=== PATIENT | female | born 1970 | race Caucasian/White ===

== ENCOUNTER 2018-08-21 19:04 | Emergency (ER) | payer MEDICARE, MEDICAID ==
[~2018-08-21] VITALS: Ht 175.3 cm; Wt 116.0 kg
[~2018-08-21 19:04] MED LIST: ADV50500 IH; ALBU18HF2 INH; ALPR-624 PO; BISA10SU60 RC; CARCD120C PO; MORP30TA60 PO; NITR100C11 PO; NORCO10T PO; ONDA4TAB12 PO; ONDA4TAB59 PO; ONDA8TAB9 PO; PANT-47 PO; PANT20TA2 PO; PHE12.5T PO; QUET200T PO
[2018-08-21 19:07] VITALS: BP 117/76
[2018-08-21] MEDS ORDERED: ipratropium/albuterol 3ml nebule NEB ONE (20:10)
[2018-08-21] MEDS ORDERED: albuterol 2.5 MG/3 ML nebule NEB ONE (20:10)
[2018-08-21] MEDS ORDERED: ipratropium 0.5 MG/2.5ML nebule IH ONE (20:10)
== END 2018-08-21 20:49 | disposition left against medical advice (07) ==
LOC: ER 19:04
DX: J45.909 Unspecified asthma, uncomplicated (principal); Z53.21 Procedure and treatment not carried out due to patient leaving prior to being seen by health care provider
CPT/HCPCS: 94640; 94760

== ENCOUNTER 2018-09-22 12:46 | Emergency (ER) | payer MEDICARE, MEDICAID ==
[~2018-09-22] VITALS: Ht 175.3 cm; Wt 100.0 kg
[2018-09-22] MEDS ORDERED: predniSONE 20 mg tablet PO ONE (14:45)
[2018-09-22] MEDS ORDERED: PRED20TA PO (14:48)
[2018-09-22 14:57] VITALS: BP 130/95
== END 2018-09-22 14:58 | disposition home or self-care (01) ==
LOC: ER 12:46
DX: L25.9 Unspecified contact dermatitis, unspecified cause (principal); J45.909 Unspecified asthma, uncomplicated; G89.29 Other chronic pain; Z90.49 Acquired absence of other specified parts of digestive tract; Z98.890 Other specified postprocedural states; Z88.0 Allergy status to penicillin; Z79.899 Other long term (current) drug therapy; Z56.0 Unemployment, unspecified
CPT/HCPCS: 99283; J7512

== ENCOUNTER 2019-06-15 10:15 | Emergency (ER) | payer MEDICARE, MEDICAID ==
[~2019-06-15] VITALS: Ht 175.3 cm; Wt 103.7 kg
[~2019-06-15 10:15] MED LIST changes: -PHE12.5T PO; +PROM12.512 PO
[2019-06-15 10:48] VITALS: BP 124/72
== END 2019-06-15 10:49 | disposition home or self-care (01) ==
LOC: ER 10:16
DX: M76.62 Achilles tendinitis, left leg (principal); M76.61 Achilles tendinitis, right leg; J45.909 Unspecified asthma, uncomplicated; G47.30 Sleep apnea, unspecified; G89.29 Other chronic pain; F41.9 Anxiety disorder, unspecified; F32.9 Major depressive disorder, single episode, unspecified; F20.9 Schizophrenia, unspecified; Z90.49 Acquired absence of other specified parts of digestive tract; Z98.890 Other specified postprocedural states; Z56.0 Unemployment, unspecified; Z88.0 Allergy status to penicillin; Z79.899 Other long term (current) drug therapy
CPT/HCPCS: 99281

== ENCOUNTER 2019-07-26 13:59 | Emergency (ER) | payer MEDICARE, MEDICAID ==
[~2019-07-26] VITALS: Ht 175.3 cm; Wt 105.5 kg
[2019-07-26 14:04] VITALS: BP 125/83
[2019-07-26] MEDS ORDERED: HYDROcodone/acetaminophen 5mg/325mg tablet PO ONE (14:25)
== END 2019-07-26 15:26 | disposition home or self-care (01) ==
LOC: ER 14:00
DX: S82.62XA Displaced fracture of lateral malleolus of left fibula, initial encounter for closed fracture (principal); J45.909 Unspecified asthma, uncomplicated; G47.30 Sleep apnea, unspecified; G89.29 Other chronic pain; F41.9 Anxiety disorder, unspecified; F32.9 Major depressive disorder, single episode, unspecified; F20.9 Schizophrenia, unspecified; Z90.49 Acquired absence of other specified parts of digestive tract; Z98.890 Other specified postprocedural states; Z88.0 Allergy status to penicillin; Z79.899 Other long term (current) drug therapy; Z56.0 Unemployment, unspecified; W18.39XA Other fall on same level, initial encounter; Y93.89 Activity, other specified; Y92.89 Other specified places as the place of occurrence of the external cause; Y99.8 Other external cause status
CPT/HCPCS: 73610; 99284

== ENCOUNTER 2019-09-14 19:21 | Emergency (ER) | payer MEDICARE, MEDICAID ==
[~2019-09-14] VITALS: Ht 175.3 cm; Wt 102.0 kg
[2019-09-14 19:59] LABS: CLARITY,URINE CLOUDY (Clear); COLOR,URINE YELLOW (Yellow); GLUCOSE, URINE NEGATIVE (Neg); KETONES,URINE 15 mg/dl (Neg); LEUKOCYTE ESTERASE ,URINE NEGATIVE (Neg); NITRITES, URINE NEGATIVE (Neg); OCCULT BLOOD,URINE TRACE-INTACT (Neg); PROTEIN,URINE TRACE mg/dl (Neg); URINE HCG NEGATIVE (NEG)
[2019-09-14 20:00] LABS: UA COLLECTION TYPE CLN CATCH MIDSTREAM
[2019-09-14 20:06] LABS: MUCUS STRANDS MODERATE /LPF (Neg); SQUAMOUS EPITHELIAL CELL,UR MANY /LPF (FEW)
[2019-09-14 20:07] LABS: BACTERIA,URINE FEW /HPF (Neg); RBC,URINE 0-2 /HPF (0-2); WBC,URINE 0-4 /HPF (0-4)
[2019-09-14 20:12] LABS: ALANINE AMINOTRANSFERASE 373 U/L (12-78); ALBUMIN/GLOBULIN RATIO 1.1 (1.1-1.5); ALKALINE PHOSPHATASE 142 IU/L (46-116); ANION GAP 11 (8-16); ASPARTATE AMINO TRANSFERASE 266 U/L (10-37); BILIRUBIN,TOTAL 0.7 MG/DL (0.1-1.0); BLOOD UREA NITROGEN 21 MG/DL (7-18); BUN/CREATININE RATIO 17.8 (6.6-38.0); CALCIUM 8.7 MG/DL (8.5-10.1); CHLORIDE 106 MMOL/L (99-107); CREATININE 1.18 MG/DL (0.40-0.90); GLUCOSE 109 MG/DL (70-104); LIPASE 51 U/L (73-393); SODIUM 139 MMOL/L (135-145); TOTAL CARBON DIOXIDE 22.2 MMOL/L (24-32); TOTAL PROTEIN 7.5 G/DL (6.4-8.2); eGFR 49 ML/MIN
[2019-09-14] MEDS ORDERED: normal saline 1000ML IV soln IVB ONE (20:25)
[2019-09-14] MEDS ORDERED: morphine 4 MG/ML inj SYRINge IV PRN (20:25)
[2019-09-14] MEDS ORDERED: ketorolac tromethamine 15mg/ml inj. IV ONE (20:25)
[2019-09-14] MEDS ORDERED: ondansetron/PF 4mg/2ml inj IV ONE (20:25)
[2019-09-14 20:40] LABS: BASOPHILS % (AUTO) 0.2 % (0-1); EOSINOPHILS # (AUTO) 0.1 X10'3 (0-0.9); EOSINOPHILS % (AUTO) 1.4 % (0-6); HEMOGLOBIN 16.6 g/dl (12.0-16.0); LYMPHOCYTES # (AUTO) 0.6 X10'3 (1.1-4.8); LYMPHOCYTES % (AUTO) 6.1 % (21-51); MEAN CORPUSCULAR HGB CONC 35.2 g/dL (33.0-36.5); MEAN CORPUSCULAR VOLUME 90.7 FL (78-98); MEAN PLATELET VOLUME 8.2 FL (7.4-10.4); MONOCYTES # (AUTO) 0.5 X10'3 (0-0.9); MONOCYTES % (AUTO) 5.3 % (2-12); PLATELET COUNT 255 X10'3 (140-440); RED BLOOD COUNT 5.18 X10'6 (4.20-5.60); RED CELL DISTRIBUTION WIDTH 12.5 % (11.5-14.5); WHITE BLOOD COUNT 9.2 X10'3 (4.5-11.0)
[2019-09-14] MEDS ORDERED: ONDA4TAB6 PO (21:41)
[2019-09-14 21:50] VITALS: BP 134/78
== END 2019-09-14 21:55 | disposition home or self-care (01) ==
LOC: ER 19:22
DX: E86.0 Dehydration (principal); R11.2 Nausea with vomiting, unspecified; R19.7 Diarrhea, unspecified; R00.0 Tachycardia, unspecified; J45.909 Unspecified asthma, uncomplicated; G89.29 Other chronic pain; M79.7 Fibromyalgia; F32.9 Major depressive disorder, single episode, unspecified; F41.9 Anxiety disorder, unspecified; F20.9 Schizophrenia, unspecified; G47.30 Sleep apnea, unspecified; Z88.0 Allergy status to penicillin; Z79.899 Other long term (current) drug therapy; Z98.890 Other specified postprocedural states; Z90.49 Acquired absence of other specified parts of digestive tract; Z56.0 Unemployment, unspecified
CPT/HCPCS: 36415; 80053; 81001; 81025; 83690; 85025; 96361; 96374; 96375; 99283; J1885; J2270; J2405; J7030; 96376

== ENCOUNTER 2019-11-01 11:08 | Emergency (ER) | payer MEDICARE, MEDICAID ==
[~2019-11-01] VITALS: Ht 175.3 cm; Wt 102.0 kg
[~2019-11-01 11:08] MED LIST changes: +ONDA4TAB6 PO
[2019-11-01 11:43] LABS: CLARITY,URINE CLEAR (Clear); COLOR,URINE YELLOW (Yellow); GLUCOSE, URINE NEGATIVE (Neg); KETONES,URINE NEGATIVE (Neg); LEUKOCYTE ESTERASE ,URINE NEGATIVE (Neg); NITRITES, URINE NEGATIVE (Neg); OCCULT BLOOD,URINE TRACE-INTACT (Neg); PROTEIN,URINE NEGATIVE (Neg); UROBILINOGEN,URINE 0.2 E.U/dL (0.2-1.0)
[2019-11-01 11:44] LABS: UA COLLECTION TYPE CLN CATCH MIDSTREAM
[2019-11-01 12:01] LABS: MUCUS STRANDS FEW /LPF (Neg); SQUAMOUS EPITHELIAL CELL,UR MANY /LPF (FEW)
[2019-11-01 12:02] LABS: BACTERIA,URINE FEW /HPF (Neg); RBC,URINE 0-2 /HPF (0-2); WBC,URINE 0-4 /HPF (0-4)
[2019-11-01] MEDS ORDERED: ketorolac tromethamine 15mg/ml inj. IM ONE (12:10)
--- NOTE | 2019-11-01 12:16 | NUR ---
To CT scan via w/c.
[2019-11-01] MEDS ORDERED: HYDR-3965 PO (13:52)
[2019-11-01 14:09] VITALS: BP 126/69
== END 2019-11-01 14:10 | disposition home or self-care (01) ==
LOC: ER 11:09
DX: R10.9 Unspecified abdominal pain (principal); R51 Headache; R30.0 Dysuria; J45.909 Unspecified asthma, uncomplicated; G47.30 Sleep apnea, unspecified; G89.29 Other chronic pain; M79.7 Fibromyalgia; F41.9 Anxiety disorder, unspecified; F32.9 Major depressive disorder, single episode, unspecified; F20.9 Schizophrenia, unspecified; Z90.49 Acquired absence of other specified parts of digestive tract; Z98.890 Other specified postprocedural states; Z56.0 Unemployment, unspecified; Z88.0 Allergy status to penicillin; Z79.899 Other long term (current) drug therapy
CPT/HCPCS: 74176; 81001; 96372; 99284; J1885

== ENCOUNTER 2019-11-03 06:03 | Emergency (ER) | payer MEDICARE, MEDICAID ==
[~2019-11-03] VITALS: Ht 175.3 cm; Wt 100.0 kg
[~2019-11-03 06:03] MED LIST changes: +HYDR-3965 PO
[2019-11-03] MEDS ORDERED: ketorolac trometh. 30mg/ml inj. IV ONE (07:25)
[2019-11-03 07:34] LABS: BASOPHILS # (AUTO) 0.1 X10'3 (0-0.2); BASOPHILS % (AUTO) 0.5 % (0-1); EOSINOPHILS # (AUTO) 0.1 X10'3 (0-0.9); EOSINOPHILS % (AUTO) 0.7 % (0-6); HEMATOCRIT 38.3 % (35.0-45.0); HEMOGLOBIN 13.5 g/dl (12.0-16.0); MEAN CORPUSCULAR HEMOGLOBIN 31.8 PG (27.0-31.0); MEAN CORPUSCULAR HGB CONC 35.3 g/dL (33.0-36.5); MEAN CORPUSCULAR VOLUME 90.1 FL (78-98); MEAN PLATELET VOLUME 7.9 FL (7.4-10.4); MONOCYTES # (AUTO) 0.7 X10'3 (0-0.9); NEUTROPHILS # (AUTO) 9.5 X10'3 (1.8-7.7); NEUTROPHILS % (AUTO) 83.8 % (42-75); PLATELET COUNT 237 X10'3 (140-440); RED BLOOD COUNT 4.25 X10'6 (4.20-5.60); WHITE BLOOD COUNT 11.3 X10'3 (4.5-11.0)
[2019-11-03 07:38] LABS: URINE HCG NEGATIVE (NEG)
[2019-11-03 07:39] LABS: CLARITY,URINE CLOUDY (Clear); COLOR,URINE YELLOW (Yellow); GLUCOSE, URINE NEGATIVE (Neg); KETONES,URINE 40 mg/dl (Neg); LEUKOCYTE ESTERASE ,URINE MODERATE (Neg); NITRITES, URINE NEGATIVE (Neg); OCCULT BLOOD,URINE LARGE (Neg); PH,URINE 6.5 (4.8-8.0); PROTEIN,URINE 30 mg/dl (Neg)
[2019-11-03 07:47] LABS: UA COLLECTION TYPE CLN CATCH MIDSTREAM
[2019-11-03 07:48] LABS: MUCUS STRANDS FEW /LPF (Neg); SQUAMOUS EPITHELIAL CELL,UR MANY /LPF (FEW); WBC CLUMPS,URINE FEW /HPF (NEGATIVE); WBC,URINE TNTC /HPF (0-4)
[2019-11-03 07:49] LABS: BACTERIA,URINE 2+ /HPF (Neg)
[2019-11-03 07:50] LABS: RBC,URINE 20-50 /HPF (0-2)
[2019-11-03 08:33] LABS: ALANINE AMINOTRANSFERASE 79 U/L (12-78); ALBUMIN 3.4 G/DL (3.4-5.0); ALBUMIN/GLOBULIN RATIO 0.8 (1.1-1.5); ALKALINE PHOSPHATASE 130 IU/L (46-116); ANION GAP 9 (8-16); ASPARTATE AMINO TRANSFERASE 33 U/L (10-37); BILIRUBIN,TOTAL 0.6 MG/DL (0.1-1.0); BLOOD UREA NITROGEN 13 MG/DL (7-18); BUN/CREATININE RATIO 13.5 (6.6-38.0); CALCIUM 8.9 MG/DL (8.5-10.1); CHLORIDE 106 MMOL/L (99-107); CREATININE 0.96 MG/DL (0.40-0.90); GLUCOSE 93 MG/DL (70-104); SODIUM 138 MMOL/L (135-145); TOTAL PROTEIN 7.7 G/DL (6.4-8.2); eGFR 62 ML/MIN
[2019-11-03 08:56] VITALS: BP 123/68
== END 2019-11-03 08:58 | disposition home or self-care (01) ==
LOC: ER 06:04
DX: N83.201 Unspecified ovarian cyst, right side (principal); J45.909 Unspecified asthma, uncomplicated; G47.30 Sleep apnea, unspecified; G89.29 Other chronic pain; F41.9 Anxiety disorder, unspecified; F32.9 Major depressive disorder, single episode, unspecified; F20.9 Schizophrenia, unspecified; Z90.49 Acquired absence of other specified parts of digestive tract; Z98.890 Other specified postprocedural states; Z56.0 Unemployment, unspecified; Z88.0 Allergy status to penicillin; Z79.899 Other long term (current) drug therapy
CPT/HCPCS: 36415; 76775; 76830; 76856; 80053; 81001; 81025; 85025; 96374; 99284; J1885; 96372

== ENCOUNTER 2020-08-13 05:59 | Emergency (ER) | payer MEDICARE, MEDICAID ==
[~2020-08-13] VITALS: Ht 175.3 cm; Wt 100.0 kg
[~2020-08-13 05:59] MED LIST changes: -HYDR-3965 PO
[2020-08-13 06:09] VITALS: BP 122/54
== END 2020-08-13 07:27 | disposition home or self-care (01) ==
LOC: ER 06:00
DX: G89.29 Other chronic pain (principal); M25.562 Pain in left knee; J45.909 Unspecified asthma, uncomplicated; M54.9 Dorsalgia, unspecified; F41.9 Anxiety disorder, unspecified; F32.9 Major depressive disorder, single episode, unspecified; F20.9 Schizophrenia, unspecified; I49.9 Cardiac arrhythmia, unspecified; Z56.0 Unemployment, unspecified; Z88.0 Allergy status to penicillin; Z79.899 Other long term (current) drug therapy; Z87.448 Personal history of other diseases of urinary system
CPT/HCPCS: 73564; 99283

== ENCOUNTER 2021-02-17 03:01 | Emergency (ER) | payer MEDICARE, MEDICAID ==
[~2021-02-17] VITALS: Ht 175.3 cm; Wt 102.7 kg
[2021-02-17 03:12] VITALS: BP 143/82
[2021-02-17] MEDS ORDERED: morphine 2 MG/ML inj. syringe IV PRN (03:55)
[2021-02-17] MEDS ORDERED: ondansetron/PF 4mg/2ml inj IV ONE (03:55)
[2021-02-17 04:07] LABS: BASOPHILS % (AUTO) 0.1 % (0-1); EOSINOPHILS # (AUTO) 0.1 X10'3 (0-0.9); EOSINOPHILS % (AUTO) 1.2 % (0-6); HEMATOCRIT 36.1 % (35.0-45.0); HEMOGLOBIN 12.3 g/dl (12.0-16.0); LYMPHOCYTES # (AUTO) 0.7 X10'3 (1.1-4.8); MEAN CORPUSCULAR HEMOGLOBIN 30.4 PG (27.0-31.0); MEAN CORPUSCULAR HGB CONC 34.2 g/dL (33.0-36.5); MEAN CORPUSCULAR VOLUME 88.8 FL (78-98); MEAN PLATELET VOLUME 7.7 FL (7.4-10.4); MONOCYTES # (AUTO) 0.7 X10'3 (0-0.9); MONOCYTES % (AUTO) 6.3 % (2-12); NEUTROPHILS # (AUTO) 10.2 X10'3 (1.8-7.7); NEUTROPHILS % (AUTO) 86.4 % (42-75); PLATELET COUNT 214 X10'3 (140-440); RED BLOOD COUNT 4.06 X10'6 (4.20-5.60); RED CELL DISTRIBUTION WIDTH 13.6 % (11.5-14.5); WHITE BLOOD COUNT 11.8 X10'3 (4.5-11.0)
[2021-02-17] MEDS ORDERED: ketorolac tromethamine 15mg/ml inj. IV ONE (04:15)
[2021-02-17] MEDS ORDERED: metoclopramide 5 mg/ml inj IV ONE (04:15)
[2021-02-17] MEDS ORDERED: LORazepam 2 mg/ml vial IV ONE (04:15)
[2021-02-17 04:19] LABS: ALANINE AMINOTRANSFERASE 46 U/L (12-78); ALBUMIN 2.9 G/DL (3.4-5.0); ALBUMIN/GLOBULIN RATIO 0.7 (1.1-1.5); ANION GAP 10 (8-16); ASPARTATE AMINO TRANSFERASE 24 U/L (10-37); BILIRUBIN,TOTAL 0.7 MG/DL (0.1-1.0); BLOOD UREA NITROGEN 14 MG/DL (7-18); BUN/CREATININE RATIO 14.9 (6.6-38.0); CALCIUM 8.2 MG/DL (8.5-10.1); CHLORIDE 106 MMOL/L (99-107); CREATININE 0.94 MG/DL (0.40-0.90); GLUCOSE 114 MG/DL (70-104); LIPASE < 50 U/L (73-393); POTASSIUM 3.9 MMOL/L (3.5-5.1); SODIUM 140 MMOL/L (135-145); TOTAL CARBON DIOXIDE 24.2 MMOL/L (24-32); TOTAL PROTEIN 6.8 G/DL (6.4-8.2); eGFR 63 ML/MIN
[2021-02-17] MEDS ORDERED: normal saline 1000ml 1,000 ML IV ONE (04:30)
[2021-02-17 04:32] LABS: ALKALINE PHOSPHATASE 114 IU/L (46-116)
[2021-02-17 04:45] LABS: URINE HCG NEGATIVE (NEG)
[2021-02-17 04:56] LABS: CLARITY,URINE CLOUDY (Clear); COLOR,URINE RED (Yellow)
[2021-02-17 05:10] LABS: UA COLLECTION TYPE CLN CATCH MIDSTREAM
[2021-02-17 05:12] LABS: BACTERIA,URINE 1+ /HPF (Neg); MUCUS STRANDS NONE SEEN /LPF (Neg); RBC,URINE TNTC /HPF (0-2); SQUAMOUS EPITHELIAL CELL,UR MODERATE /LPF (FEW)
[2021-02-17] MEDS ORDERED: morphine 4 MG/ML inj SYRINge IV ONE (06:00)
--- NOTE | 2021-02-17 07:15 | NUR ---
TC FROM DAUGHTER FOR CONDITION REPORT. DAUGHTER, CLAUDETTE MARTÍNEZ, IS POA AND CONTACT NUMBER IS [phone]. FYI:PATIENT DOES NOT LIKE TO DRINK WATER AND WILL DRINK COFFEE, V-8 JUICE, OR RED GATORADE WITH MEDICATION. IN ADDITION, CLAUDETTE STATES THAT HE NEEDS TO BE TOLD TO EAT OR FED, OTHERWISE HE WILL NOT EAT.
[2021-02-17] MEDS ORDERED: DOXY100C76 PO (07:23)
[2021-02-17] MEDS ORDERED: CefTRIAXone 250MG inj IV ONE (07:45)
[2021-02-17] MEDS ORDERED: HYDR-3965 PO (08:00)
[2021-02-17] MEDS ORDERED: CefTRIAXone 1000mg IM Kit (w/lidocaine diluent) IM ONE (08:35)
== END 2021-02-17 08:49 | disposition home or self-care (01) ==
LOC: ER 03:01
DX: N73.9 Female pelvic inflammatory disease, unspecified (principal); K59.00 Constipation, unspecified; R10.13 Epigastric pain; J45.909 Unspecified asthma, uncomplicated; G89.29 Other chronic pain; F41.9 Anxiety disorder, unspecified; F32.9 Major depressive disorder, single episode, unspecified; F20.9 Schizophrenia, unspecified; Z87.440 Personal history of urinary (tract) infections; Z90.49 Acquired absence of other specified parts of digestive tract; Z98.890 Other specified postprocedural states; Z56.0 Unemployment, unspecified; Z88.0 Allergy status to penicillin; Z79.899 Other long term (current) drug therapy
CPT/HCPCS: 36415; 74176; 76856; 80053; 81001; 81025; 83690; 84145; 85025; 87077; 87088; 87186; 87491; 87591; 93976; 96361; 96372; 96374; 96375; 96376; 99285; J0696; J1885; J2060; J2270; J2405; J2765; J7030

== ENCOUNTER 2021-07-29 08:04 | Emergency (ER) | payer MEDICARE, MEDICAID ==
[~2021-07-29] VITALS: Ht 175.3 cm; Wt 104.0 kg
[2021-07-29 08:13] VITALS: BP 148/91
== END 2021-07-29 10:05 | disposition left against medical advice (07) ==
LOC: ER 08:04
DX: M79.641 Pain in right hand (principal); Z53.21 Procedure and treatment not carried out due to patient leaving prior to being seen by health care provider
CPT/HCPCS: 73130

== ENCOUNTER 2025-04-27 07:29 | Emergency (ER) | payer MEDICARE, MEDICAID ==
[~2025-04-27] VITALS: Ht 175.3 cm; Wt 107.6 kg
[~2025-04-27 07:29] MED LIST changes: -ADV50500 IH; +ALBU17AE26 PO; -ALBU18HF2 INH; -ALPR-624 PO; -BISA10SU60 RC; -CARCD120C PO; +DILT-35 PO; +ESCI20TA39 PO; +FLUT1BLS8 PO; +MIRT-87 PO; -MORP30TA60 PO; -NITR100C11 PO; -NORCO10T PO; +ONDA-243 PO; -ONDA4TAB12 PO; -ONDA4TAB59 PO; -ONDA4TAB6 PO; -ONDA8TAB9 PO; -PANT-47 PO; -PANT20TA2 PO; -PROM12.512 PO; -QUET200T PO; +QUET200T31 PO
[2025-04-27 07:34] VITALS: BP 175/96; PULSE 76; RESP 16; TEMP 96.9; O2SAT 94
--- NOTE | 2025-04-27 07:49 | Physician Documentation ---
History of Present Illness ~ Chief Complaint: Toe pain Stated Complaint: INGROWN TOENAIL Time Seen by MD: 07:38 Primary Medical Doctor: Dr Cabello Source: patient Mode of Arrival: POV Exam Limitations: no limitations HPI Patient with swelling and redness of her right great toe over the last couple of days. Recent pedicure done. She is not sure if it is ingrown. No history of ingrown toenails. She states she has been getting a pedicure of the month for the past 8 years. This is never happened. Tetanus witin 5 years: No (unknown) Medication Reconciliation Allergies: Coded Allergies: Penicillins (Verified Allergy, Unknown, 08/13/20) Scheduled Cephalexin*Monohydrate* (Keflex*), 1 CAP PO BID Diltiazem HCl (Diltiazem 24Hr ER), 1 CAP PO DAILY, (Reported) Escitalopram Oxalate (Escitalopram Oxalate), 1 TAB PO DAILY, (Reported) Fluticasone/Salmeterol* (Advair 500-50 Diskus*), 1 PUFF PO DAILY, (Reported) Mirtazapine (Mirtazapine), 1 TAB PO HS, (Reported) Quetiapine Fumarate (Quetiapine Fumarate), 2 TAB PO HS, (Reported) Scheduled PRN Albuterol (Albuterol), 1 PUFF PO Q4H PRN for SOB or wheezing, (Reported) ONDANSETRON ODT 4mg tablet (Ondansetron Odt), 4 MG PO Q6H PRN for nausea/vomiting Past Medical History Past Medical History: Vertigo, Arrhythmia, Asthma, Sleep Apnea, Constipation, UTI, Chronic Pain, Chronic Back Pain, Fibromyalgia, Anxiety, Depression, Schizophrenia Past Surgical History: cholecystectomy, , orthopedic surgeries Patient History: FH: breast cancer Maternal grandmother Other Past Family History: none Alcohol Use: None Drug Use: none Lives with: Spouse Lives In: Home Occupation: unemployed Review of Systems All Other Systems at this time: Reviewed and Negative Physical Exam Vital Signs: Temperature: 96.9, Source: Temporal, Heart Rate: 76, Respiratory Rate: 16, BP: 175/96, Pulse Oximetry: 94, Weight: 107.600 General Appearance: alert, WD/WN Head: normal inspection Respiratory: normal breath sounds, no respiratory distress Feet Right great toe: Mild swelling and erythema of the surrounding tissue predominantly along the medial aspect of the nail, tender, no obvious ingrown nail, good pulses and sensation Distal Function: no motor deficit, no sensory deficit Skin: normal color, warm/dry Neurologic: oriented x4, memory intact Psychiatric: normal mood/affect Progress Progress Note Patient with what appears to be mild cellulitis of the toe. No discharge but no obvious ingrown nail. Placing her on Keflex. Giving her some topical lidocaine to take with her. I gave care instructions to clean and dry daily. Follow up if not improving or worsening of symptoms. Discharged home in good condition. Results/Orders Results/Orders Vital Signs 04/27/25 07:34 Temp 96.9 Pulse 76 Resp 16 B/P (MAP) 175/96 Pulse Ox 94 Departure Impression: Primary Impression: Cellulitis of right toe Condition: Stable Discharge Instructions: Cellulitis, Adult, [id number] Additional Instructions: Complete your antibiotics. Wash the toe daily then dry thoroughly and try to keep dry. Follow-up if not improving, worsening or if you still feel the toenail is ingrown. Departure Forms: Excuse form Work or School Excused From: Work Excuse beginning now through the following date: Apr 27, 2025 Referrals: NO PRIMARY CARE PROVIDER (PCP) Prescriptions Cephalexin*Monohydrate* (Keflex*) 500 Mg Capsule 1 CAP PO BID for 7 Days, #14 CAP Prov: NITZA PISANO MD 04/27/25 Education Educated: Patient Educated regarding: diagnosis, treatment, prognosis, need for follow up Signature Scribe Signature: No scribe used Attestation: No scribe used NITZA PISANO MD Apr 27, 2025 07:49
[2025-04-27] MEDS ORDERED: CEPH-585 PO (07:50)
[2025-04-27] MEDS: LIDOcaine 2% Viscous 15ml cup MM ONE (08:11)
== END 2025-04-27 08:33 | disposition home or self-care (01) ==
LOC: ER 07:30
DX: L03.031 Cellulitis of right toe (principal); G47.30 Sleep apnea, unspecified; F20.9 Schizophrenia, unspecified; J45.909 Unspecified asthma, uncomplicated; M79.7 Fibromyalgia; Z87.440 Personal history of urinary (tract) infections; Z88.0 Allergy status to penicillin; Z90.49 Acquired absence of other specified parts of digestive tract
CPT/HCPCS: 99283